=== PATIENT | female | born 1960 | race Caucasian/White ===

== ENCOUNTER 2017-02-13 08:01 | Outpatient (CLI) | payer BC ==
[~2017-02-13 08:01] MED LIST: GREEN TEA EXTR150 MG PO; HYDROCHLOROTHIA25 MG PO; METHYLGUARD PO; PROGESTERONE100 MG PO; RESVERATROL PLUS PO; VITAMIN D-31000 UNIT PO; [UNRECOGNIZED DRUG - OTHER] PO
[2017-02-18] MEDS ORDERED: PROGESTER (14:01)
[2017-02-18] MEDS ORDERED: BIEST (14:01)
[2017-02-18] MEDS ORDERED: VITAMIN B12500 MCG PO (14:02)
== END 2017-02-13 23:00 ==
LOC: LAB SRH 08:01
DX: Z85.038 Personal history of other malignant neoplasm of large intestine (principal)
CPT/HCPCS: 90074; 90100; 93005; 95059

== ENCOUNTER 2017-02-21 06:22 | Day surgery (SDC) | payer BC ==
[~2017-02-21] VITALS: Ht 162.6 cm; Wt 95.0 kg
[~2017-02-21 06:22] MED LIST changes: +BIEST; +PROGESTER; +VITAMIN B12500 MCG PO
--- NOTE | 2017-02-21 06:51 | NUR ---
PT IDENTIFIED & HERE WITH HER SISTER NANCY FOR HER PROCEDURE TODAY, NANCY WILL BE HER [employer] SUPERVISOR HOME POST OP CONSENTS SIGNED, DATED & TIMED PREP COMPLETED & TOLERATED WELL PREOP & SAFETY INFO REVIEWED WITH PT UNDERSTANDING NOTED PER PT IV ACCESS STARTED IN PTS RWRIST AREA WITHOUT COMPLICATIONS. 22G SIDE RAILS UP, PT READY FOR PREOP HOLDING
--- NOTE | 2017-02-21 07:32 | NUR ---
INTRODUCED SELF TO PT IN PRE OP HOLDING. PT VERIFIED NAME, BIRTHDATE, AND SURGICAL CONSENT. PT DENIED ALLERGIES. PT STATED COMPLETING COLONOSCOPY PREP AT APPROX 0100 THIS AM AND NPO SINCE THAT TIME. PT TAKES NO ROUTINE MEDICATIONS FOR HIGH BLOOD PRESSURE OR DIABETES. PT CHART REVIEWED AND PT QUESTIONS ANSWERED. AMILCAR
--- NOTE | 2017-02-21 07:37 | NUR ---
PT RESTATED NAME, BIRTHDATE AND SURGICAL PROCEDURE AFTER ENTERING OR SUITE. PT AGAIN DENIED ALLERGIES. SD
--- NOTE | 2017-02-21 07:50 | NUR ---
PT TRANSPORTED TO PACU, REPORT GIVEN TO PACU NURSE. SD
--- NOTE | 2017-02-21 07:54 | NUR ---
RECEIVED TO UNIT, EASILY AWAKES, RESPONSIVE TO QUESTIONING. SURGEON IN TO SEE PT FOR POST OP VISIT, PLAN TO RESCOPE I ONE YEAR.
--- NOTE | 2017-02-21 08:02 | NUR ---
ENCOURAGED TO REPOSITION ON STRETCHER, EXPEL AIR FROM BOWEL. ABLE TO DO SO. GIVEN SIP OF WATER FOR ORAL COMFORT
--- NOTE | 2017-02-21 08:19 | NUR ---
PT ARRIVES TO SCU AWAKE, ALERT & EAGER TO GO HOME SISTER AT BEDSIDE DENIES PAIN OR NAUSEA VITALS STABLE & PT TOLERATING PO WELL
--- NOTE | 2017-02-21 08:34 | NUR ---
VITALS REMAIN STABLE, SISTER AT BEDSIDE & PT EAGER TO GO HOME
[2017-02-21 08:48] VITALS: BP 140/92
--- NOTE | 2017-02-21 08:54 | NUR ---
IV ACCESS REMOVED WITH CATH INTACT, BANDAID WITH GAUZE APPLIED DISCHARGE INSTRUCTIONS REVIEWED WITH PT & SISTER WITH UNDERSTANDING NOTED. VITALS REMAINED STABLE & PT LEFT AMBULATING TO HOME WITH SISTER DRIVING
== END 2017-02-21 08:55 | disposition home or self-care (01) ==
LOC: OR SRH 06:22 → SCU SRH 06:23 → OR SRH 07:30
PROVIDERS: Specialist
PROC: 0DJD8ZZ Inspection of Lower Intestinal Tract, Via Natural or Artificial Opening Endoscopic (ICD-10-PCS; principal; 2017-02-21 07:30)
DX: Z08 Encounter for follow-up examination after completed treatment for malignant neoplasm (principal); Z85.038 Personal history of other malignant neoplasm of large intestine; K57.30 Diverticulosis of large intestine without perforation or abscess without bleeding; Z90.49 Acquired absence of other specified parts of digestive tract
CPT/HCPCS: 29229; 29240; 50004; 60001; 82944; 83526